=== PATIENT | female | born 1990 | race Caucasian/White ===

== ENCOUNTER 2020-03-07 12:40 | Emergency (ER) | payer OTHER ==
[2020-03-07 12:56] VITALS: BMI 27.6
--- NOTE | 2020-03-07 13:02 | PDOC ---
History of Present Illness - General Chief Complaint: Constipation Stated Complaint: abdominal discomfort Time Seen by Provider: 03/07/20 12:50 History Source: Patient Exam Limitations: No Limitations - History of Present Illness Initial Comments: 03/07/20 12:56 29YOF with h/o H/ pylori gastritis in childhood, tx with antibiotics, mild chronic episodic constipation since then, who p/w 5 days constipation now with diffuse abdominal pain and fullness which is like pressure and is worse in periumbilical, suprapubic, and RLQ region. She notes having tried saline laxative last night and had several watery BMs but has not had formed stool. She notes chills at home last night. Denies fever, n/v, back pain, chest pain, SOB, rectal bleeding, black or white stool, change in pain when she eats, burning on urination, urinary frequency, vaginal bleeding or discharge, or other associated symptoms. She denies ever being this constipated and denies having pain like this in the past. States she is on OCP and denies chance of being , LMP was end of January. States she does follow regularly with [facility] but has not seen them this spring/summer because of COVID-19. Past History - Medical History Allergies/Adverse Reactions: Allergies Allergy/AdvReac Type Severity Reaction Status Date / Time No Known Allergies Allergy Verified 03/07/20 12:43 Home Medications: Ambulatory Orders Fe 1.5 mg-30 Mcg Tablet 1.5 mcg PO DAILY 03/07/20 COPD: No - Reproductive History Is Patient Now?: No - Immunization History Immunization Up to Date: Yes - Psycho-Social/Smoking History Smoking History: Never smoked Have you smoked in the past 12 months: No Information on smoking cessation initiated: No - Substance Abuse Hx (Audit-C & DAST Scrn) How often the patient has a drink containing alcohol: Monthly or less Number of drinks the patient has on a typical day: 1 or 2 How often the patient has six or more drinks on one occasion: Never Score: In Men: 4 or > Positive; In Women: 3 or > Positive: 1 Screen Result (Pos requires Nsg. Audit-10AR): Negative In the last yr the pt used illegal drug/Rx for NonMed reason: No Score: Yes response is considered Positive: 0 Screen Result (Positive result requires Nsg. DAST-10): Negative Review of Systems - Review of Systems Able to Perform ROS?: Yes Comments:: 03/07/20 13:16 GEN: no fever, chills, malaise, or generalized weakness HEENT: no ear pain, congestion, sore throat, vision change, or eye pain CV: no chest pain, palpitations, lightheadedness, syncope, or edema RESP: no SOB, wheezing, or cough GI: abdominal pain, constipation, no nausea, vomiting, or rectal bleed : no dysuria, hematuria, or discharge MSK: no muscle weakness or pain, no joint swelling or pain NEURO: no headache, vertigo, numbness, tingling, or focal weakness PSYCH: no SI, HI, or behavior change SKIN: no jaundice, rash, lesions, or unexplained bruises ROS otherwise negative except as noted in HPI *Physical Exam - Vital Signs Last Vital Signs Temp Pulse Resp BP Pulse Ox 99.9 F H 107 H 18 120/81 99 03/07/20 12:42 03/07/20 12:42 03/07/20 12:42 03/07/20 12:42 03/07/20 12:42 - Physical Exam 03/07/20 13:02 GENERAL: well-appearing, A/Ox4, no distress, answers questions appropriately, seems very intelligent and knowledgeable HEENT: PERRLA, EOMI, moist mucous membranes NECK/BACK: no midline ttp, no spinal step-off or deformity, no hematoma, full ROM, neck supple CARDIOVASCULAR: regular rate/rhythm, no MGR, strong peripheral pulses, capillary refill <2 seconds, extremities wwp, no edema LUNGS/RESPIRATORY: no respiratory distress, CTAB GI/ABDOMEN: symmetric [id number], normoactive BS, soft, mild diffuse ttp worse in the periumbilical and suprapubic and RLQ regions, no midline pulsatile masses : no CVA tenderness MSK/EXTREMITIES: no muscle atrophy, no acute deformity SKIN: warm and dry, no pallor, no jaundice, no rash, no pathologic-appearing bruising, no skin breakdown, no cuts, no lesions NEUROLOGICAL: GCS 15, CN II-XII grossly intact, 5/5 strength proximally and distally, no facial droop ED Treatment Course - LABORATORY CBC & Chemistry Diagram: 03/07/20 13:30 03/07/20 13:30 Medical Decision Making - Medical Decision Making 03/07/20 13:18 29YOF p/w RLQ abdominal pain and milder diffuse abdominal pain. Initial Vital Signs Temp Pulse Resp BP Pulse Ox 99.9 F H 107 H 18 120/81 99 03/07/20 12:42 03/07/20 12:42 03/07/20 12:42 03/07/20 12:42 03/07/20 12:42 DDX IBNLT: Most likely appendicitis, UTI/pyelonephritis, colitis, divertic ulitis. Much less likely renal colic, ovarian torsion, ovarian cyst, ectopic , PID, TOA, cholecystitis, PUD, SBO, bowel ischemia or perforation, etc. However, patient is tender enough and mildly febrile, and CT abdomen/pelvis with IV contrast is appropriate. Could also be constipation, musculoskeletal, primary dysmenorrhea, endometriosis, fibroids, etc. Provider Orders Category Date Time Status ABDOMEN & PELVIS CT WITH CONTR [CT] Stat CT Scan 03/07/20 13:18 Completed CBC WITH DIFFERENTIAL Stat Lab 03/07/20 13:30 Completed COMP METABOLIC PANEL Stat Lab 03/07/20 13:30 Results HCG,QUALITATIVE URINE Stat Lab 03/07/20 13:30 Completed LIPASE Stat Lab 03/07/20 13:30 Results MAGNESIUM Stat Lab 03/07/20 13:30 Results UA ([facility] ONLY) Stat Lab 03/07/20 13:30 Completed URINE MICROSCOPIC (AMY) Stat Lab 03/07/20 13:30 Completed Acetaminophen Injection [Ofirmev Injection -] Medication 03/07/20 13:23 Discontinued 1,000 mg IVPB ONCE ONE Acetaminophen Injection [Ofirmev Injection -] 100 ml Medication 03/07/20 13:36 Discontinued IVPB UD Lactated Ringers Solution Medication 03/07/20 13:15 Discontinued 1,000 ml in 1,000 ml IV ONCE URINE CULTURE Stat Micro 03/07/20 13:30 Received IV Insert NOW Phy Order 03/07/20 13:15 Completed Saline Lock, Insert ONCE Phy Order 03/07/20 13:15 Ordered Saline Lock, Insert ONCE Phy Order 03/08/20 13:15 Ordered TRANSVAGINAL ULTRASOUND US [US] Stat Ultrasound 03/07/20 15:30 Ordered Medications Discontinued Medications Generic Name Dose Route Start Last Admin Trade Name Freq PRN Reason Stop Dose Admin Acetaminophen 1,000 mg 03/07/20 13:23 03/07/20 13:30 Ofirmev Injection - IVPB 03/07/20 13:24 1,000 mg ONCE ONE Administration Lactated Ringer's 1,000 ml in 1,000 mls @ 1,000 mls/hr 03/07/20 13:15 03/07/20 13:30 Lactated Ringers Solution IV 03/07/20 14:14 1,000 mls/hr ONCE STA Administration Acetaminophen Confirm 03/07/20 13:36 Ofirmev Injection - Administered 03/07/20 13:37 Dose 100 mls @ ud IVPB .STK-MED ONE Lab Results WBC 7.3 K/mm3 (4.0-10.8) 03/07/20 13:30 RBC 3.94 M/mm3 (3.60-5.2) 03/07/20 13:30 Hgb 12.5 GM/dl (10.7-15.3) 03/07/20 13:30 Hct 37.4 % (32.4-45.2) 03/07/20 13:30 MCV 95.0 fl (80-96) 03/07/20 13:30 MCH 31.8 pg (25.7-33.7) 03/07/20 13:30 MCHC 33.5 g/dl (32.0-36.0) 03/07/20 13:30 RDW 11.9 % (11.6-15.6) 03/07/20 13:30 Plt Count 327 K/MM3 (134-434) 03/07/20 13:30 MPV 8.9 fl (7.5-11.1) 03/07/20 13:30 Absolute Neuts (auto) 5.7 K/mm3 03/07/20 13:30 Neutrophils % 77.0 % (42.8-82.8) 03/07/20 13:30 Lymphocytes % 16.4 % (8-40) 03/07/20 13:30 Monocytes % 4.2 % (3.8-10.2) 03/07/20 13:30 Eosinophils % 2.0 % (0-4.5) 03/07/20 13:30 Basophils % 0.4 % (0-2.0) 03/07/20 13:30 Sodium 137 mmol/L (136-145) 03/07/20 13:30 Potassium 3.4 mmol/L (3.5-5.1) L 03/07/20 13:30 Chloride 106 mmol/L (98-107) 03/07/20 13:30 Carbon Dioxide 22 mmol/L (21-32) 03/07/20 13:30 Anion Gap 9 MMOL/L (8-16) 03/07/20 13:30 BUN 8.0 mg/dl (7-18) 03/07/20 13:30 Creatinine 0.6 mg/dl (0.55-1.3) 03/07/20 13:30 Est GFR (CKD-EPI)AfAm 141.76 03/07/20 13:30 Est GFR (CKD-EPI)NonAf 122.31 03/07/20 13:30 Random Glucose 86 mg/dl (74-106) 03/07/20 13:30 Calcium 8.7 mg/dl (8.5-10) 03/07/20 13:30 Magnesium 1.8 mg/dL (1.8-2.4) 03/07/20 13:30 Total Bilirubin 0.7 mg/dl (0.2-1) 03/07/20 13:30 AST 19 U/L (15-37) 03/07/20 13:30 ALT 21 U/L (13-61) 03/07/20 13:30 Alkaline Phosphatase 46 U/L (45-117) 03/07/20 13:30 Total Protein 6.8 g/dl (6.4-8.2) 03/07/20 13:30 Albumin 4.0 g/dl (3.4-5.0) 03/07/20 13:30 Urine Color Tanna 03/07/20 13:30 Urine Appearance Clear 03/07/20 13:30 Urine pH 5.0 (4.5-8) 03/07/20 13:30 Urine Protein Negative (NEGATIVE) 03/07/20 13:30 Urine Glucose (UA) Negative (NEGATIVE) 03/07/20 13:30 Urine Ketones 3+ (NEGATIVE) H 03/07/20 13:30 Urine Blood 2+ (NEGATIVE) H 03/07/20 13:30 Urine Nitrite Negative (NEGATIVE) 03/07/20 13:30 Urine Bilirubin 1+ (NEGATIVE) H 03/07/20 13:30 Urine Urobilinogen 0.2 (0.2-1.0) 03/07/20 13:30 Ur Leukocyte Esterase Negative (NEGATIVE) 03/07/20 13:30 Urine RBC 40-60 /hpf (0-4) 03/07/20 13:30 Urine WBC 5-10 (NEGATIVE) 03/07/20 13:30 Ur Transition Epith Cell Moderate /hpf 03/07/20 13:30 Urine Bacteria Many /hpf (NEGATIVE) 03/07/20 13:30 Urine HCG, Qual Negative 03/07/20 13:30 CT/ABDOMEN PELVIS CT WITH CONTR CT abdomen and pelvis with intravenous contrast Comparison studies: None Clinical history: Right lower quadrant pain and fever Axial imaging completed with coronal and sagittal reformations after injection 100 cc Omnipaque 300, retroverted uterus visualized with normal rectum. Hypodense lesion in the left ovary with Hounsfield density 13 is consistent with a likely cyst measuring 4.3 x 3.0 x 3.3 cm. There is a recently ruptured cyst visualized in the right ovary measuring up to 10 mm with normal appearance of the urinary bladder. No significant fluid in the floor the pelvis Normal cecum and terminal ileum with normal visualization of the appendix small subcentimeter reactive lymph nodes in the right lower quadrant mesentery with no infiltration of the fat, no fluid collections are seen in the pelvis. Normal appendix visualized. No infiltration of the periappendiceal fat. Normal lung bases. No free air or free fluid with no hernia and no signs of bowel obstruction Normal volume liver 14 x 17 cm with Holden's lobe configuration with diffuse hepatic steatosis. Normal gallbladder including both kidneys and spleen. Bone windows wi th no suspicious osseous lesions. Impression: CT imaging completed with no free air or free fluid and no signs of bowel obstruction or hernia Normal appendix with no signs of colitis or diverticulitis No hydronephrosis or stones in the kidneys. Left adnexal cyst with recently ruptured hemorrhagic cyst in the right ovary. Retroverted uterus. Correlation with sonography recommended. US/TRANSVAGINAL ULTRASOUND US Transvaginal ultrasound Clinical information: right ruptured ovarian cyst described on CT The exam was performed utilizing transvaginal scanning. No definite right ovarian cyst is identified. Several subcentimeter right ovarian follicles are noted. An approximately 3.5 x 3.3 cm left ovarian cyst is noted without associated soft tissue nodularity or thickened internal septation. No Doppler evidence of ovarian torsion, sensitivity 70%. A very small amount of fluid is noted within the cul-de-sac and bilateral adnexa. A retroverted uterus is seen which appears unremarkable in overall size and echotexture. No discrete myometrial pathology is identified. Endometrial thickness appears unremarkable measuring 0.3 cm. Impression: As noted above. This Pt has gotten significant relief of symptoms while in the ED. There is no indication at this time for [facility] consultation for surgical management as there is no e/o heavy or ongoing blood loss from this ruptured right ovarian cyst. On last reassessment, vitals are wnl, pain is reasonably controlled, and exam is benign. Workup is not concerning for emergency-level pathology at this time. This Pt is appropriate for discharge with close outpatient follow up with PCP and ORDER DETAILER, both of which she has already established. The Pt is comfortable with this plan. She will take Tylenol for mild-moderate pain. She is cautioned against NSAIDs for now, given the hemorrhagic cyst. Specific return precautions are discussed and they will come back to the ER if necessary, particularly for worsening pain, lightheadedness, fainting, fever greater than 100.3 at home, rapid palpitations, vaginal discharge, or any other symptoms. Last Vital Signs Temp Pulse Resp BP Pulse Ox 98.5 F 74 18 112/72 99 03/07/20 17:06 03/07/20 17:06 03/07/20 17:06 03/07/20 17:06 03/07/20 17:06 Discharge - Discharge Information Problems reviewed: Yes Clinical Impression/Diagnosis: Hemorrhagic ovarian cyst Condition: Stable Disposition: HOME - Admission No - Follow up/Referral - Patient Discharge Instructions Patient Printed Discharge Instructions: DI for Ovarian Cyst Additional Instructions: You were seen in the ER for lower abdominal pain and a slight fever. We did a CT scan and an ultrasound, and found a ruptured right ovarian cyst, with a small amount of blood loss but no larger-volume bleeding. We gave you fluids, IV Tylenol, and a potassium supplement. At this time, we do not believe there is an emergency any longer and you are safe to go home. Please take Tylenol as needed for mild-moderate pain, following the instructions on the medication bottle. 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 Come back to the ER if necessary, particularly for worsening pain, lightheadedness, fainting, fever greater than 100.3 at home, rapid palpitations, vaginal discharge, or any other symptoms. - Post Discharge Activity
[2020-03-07] MEDS ORDERED: LACTATED RINGERS SOLUTION 1,000 ML/1,000 ML INFUS.BAG IV STA (13:15)
[2020-03-07] MEDS ORDERED: ACETAMINOPHEN 1000 MG/100 ML VIAL (NON FORMULARY) IVPB ONE (13:23)
[2020-03-07] MEDS ORDERED: ACETAMINOPHEN INJECTION 100 ML IVPB ONE (13:36)
[2020-03-07 13:44] LABS: HCG,QUALITATIVE URINE Negative
[2020-03-07 13:48] LABS: BASO % 0.4 % (0-2.0); HEMATOCRIT 37.4 % (32.4-45.2); HEMOGLOBIN 12.5 GM/dl (10.7-15.3); LYMPH % 16.4 % (8-40); MCH 31.8 pg (25.7-33.7); MCHC 33.5 g/dl (32.0-36.0); MEAN PLT VOLUME 8.9 fl (7.5-11.1); MONO % 4.2 % (3.8-10.2); PLATELET COUNT 327 K/MM3 (134-434); RBC 3.94 M/mm3 (3.60-5.2); RDW 11.9 % (11.6-15.6); WHITE BLOOD COUNT 7.3 K/mm3 (4.0-10.8)
[2020-03-07 13:52] LABS: BILIRUBIN,TOTAL 0.7 mg/dl (0.2-1); CALCIUM 8.7 mg/dl (8.5-10); CREATININE 0.6 mg/dl (0.55-1.3); MAGNESIUM 1.8 mg/dL (1.8-2.4); POTASSIUM 3.4 mmol/L (3.5-5.1); TOT PROT 6.8 g/dl (6.4-8.2)
[2020-03-07 13:54] LABS: EPITHELIAL CELLS MODERATE /hpf
[2020-03-07] MEDS ORDERED: POTASSIUM CHLORIDE TABS 20 MEQ TABLET.ER (FP) PO ONE ×2 (15:38→15:41)
[2020-03-07 17:07] VITALS: BP 112/72; PULSE 74; TEMP 98.5
== END 2020-03-07 17:32 | disposition home or self-care (01) ==
LOC: FER 12:40
PROC: 3E033NZ Introduction of Analgesics, Hypnotics, Sedatives into Peripheral Vein, Percutaneous Approach (ICD-10-PCS; principal; 2020-03-07)
PROC: 3E0337Z Introduction of Electrolytic and Water Balance Substance into Peripheral Vein, Percutaneous Approach (ICD-10-PCS; 2020-03-07)
DX: N83.209 Unspecified ovarian cyst, unspecified side (principal)
CPT/HCPCS: 36415; 74177-TC; 76830-TC; 80053; 81003; 81015; 83690; 83735; 84703; 85025; 87086; 99285-25; J0131